=== PATIENT | male | born 1950 | race African-American/Black ===

== ENCOUNTER 2018-04-08 00:14 | Emergency (ER) | payer OTHER ==
[2018-04-08 01:21] LABS: BASO # 0.1 10^3/uL (0.0-0.2); EOS # 0.2 10^3/uL (0.0-0.50); EOS % 3.1 % (0.0-3.0); HEMATOCRIT 42.2 % (42.0-52.0); IMMATURE GRANULOCYTE % 0.3 % (0-3.0); LYMPH # 2.7 10^3/uL (1.5-4.5); MEAN CORPUSCULAR HEMOGLOBIN 29.5 pg (27.0-33.0); MEAN CORPUSCULAR HGB CONC 33.2 g/dl (32.0-36.5); MONO # 0.6 10^3/uL (0.0-0.8); MONO % 10.2 % (0.0-5.0); NEUTROPHILS # 2.4 10^3/uL (1.8-7.7); NEUTROPHILS % 40.4 % (36.0-66.0); PLATELET COUNT, AUTOMATED 268 10^3/uL (150-450); RED BLOOD COUNT 4.74 10^6/uL (4.30-6.10); WHITE BLOOD COUNT 5.9 10^3/uL (4.0-10.0)
[2018-04-08 01:36] LABS: ANION GAP 5 MEQ/L (8-16); BLOOD UREA NITROGEN 18 MG/DL (7-18); CALCIUM LEVEL 9.1 MG/DL (8.8-10.2); CARBON DIOXIDE LEVEL 28 MEQ/L (21-32); CHLORIDE LEVEL 108 MEQ/L (98-107); CK-MB VALUE MASS 4.2 NG/ML (<3.6); CPK CREATINE PHOSPHOKINASE 354 U/L (39-308); CREATININE FOR GFR 1.33 MG/DL (0.70-1.30); GLOMERULAR FILTRATION RATE 57.1 (>49); GLUCOSE, FASTING 84 MG/DL (70-100); MB/CK RELATIVE INDEX 1.18 (< OR =4); POTASSIUM SERUM 4.1 MEQ/L (3.5-5.1); SODIUM LEVEL 141 MEQ/L (136-145); TROPONIN I < 0.02 NG/ML (< 0.10)
[2018-04-08 04:37] LABS: CK-MB VALUE MASS 3.9 NG/ML (<3.6); CPK CREATINE PHOSPHOKINASE 324 U/L (39-308); TROPONIN I < 0.02 NG/ML (< 0.10)
== END 2018-04-08 05:13 | disposition home or self-care (01) ==
LOC: M ED 00:14
DX: R07.89 Other chest pain (principal); R00.1 Bradycardia, unspecified; I44.0 Atrioventricular block, first degree; I25.10 Atherosclerotic heart disease of native coronary artery without angina pectoris; I10 Essential (primary) hypertension; F20.9 Schizophrenia, unspecified; Z88.6 Allergy status to analgesic agent; Z88.5 Allergy status to narcotic agent; Z91.013 Allergy to seafood; Z91.010 Allergy to peanuts
CPT/HCPCS: 71045

== ENCOUNTER 2018-07-13 20:11 | Emergency (ER) | payer OTHER ==
[2018-07-13] MEDS: NITROGLYCERIN 0.4 MG SUBL TABLET SL ×2 (21:37→21:50)
[2018-07-13 21:52] LABS: BASO # 0.1 10^3/uL (0.0-0.2); BASO % 1.2 % (0.0-1.0); EOS # 0.2 10^3/uL (0.0-0.50); EOS % 2.7 % (0.0-3.0); HEMOGLOBIN 14.2 g/dl (13.5-17.5); IMMATURE GRANULOCYTE % 0.2 % (0-3.0); LYMPH # 2.1 10^3/uL (1.5-4.5); LYMPH % 35.8 % (24.0-44.0); MEAN CORPUSCULAR VOLUME 90.9 fl (80.0-96.0); MONO # 0.4 10^3/uL (0.0-0.8); MONO % 6.7 % (0.0-5.0); NEUTROPHILS # 3.1 10^3/uL (1.8-7.7); NEUTROPHILS % 53.4 % (36.0-66.0); PLATELET COUNT, AUTOMATED 254 10^3/uL (150-450); RED BLOOD COUNT 4.73 10^6/uL (4.30-6.10); RED CELL DISTRIBUTION WIDTH 13.6 % (11.5-14.5); WHITE BLOOD COUNT 5.9 10^3/uL (4.0-10.0)
[2018-07-13 22:15] LABS: ANION GAP 6 MEQ/L (8-16); BLOOD UREA NITROGEN 17 MG/DL (7-18); CALCIUM LEVEL 9.2 MG/DL (8.8-10.2); CARBON DIOXIDE LEVEL 28 MEQ/L (21-32); CHLORIDE LEVEL 108 MEQ/L (98-107); CPK CREATINE PHOSPHOKINASE 347 U/L (39-308); CREATININE FOR GFR 1.41 MG/DL (0.70-1.30); GLOMERULAR FILTRATION RATE > 60.0 (>49); GLUCOSE, FASTING 87 MG/DL (70-100); MB/CK RELATIVE INDEX 1.18 (< OR =4); POTASSIUM SERUM 3.7 MEQ/L (3.5-5.1); SODIUM LEVEL 142 MEQ/L (136-145); TROPONIN I < 0.02 NG/ML (< 0.10)
[2018-07-13] MEDS: KETOROLAC 30 MG/ML VIAL (J1885) IV (23:10)
[2018-07-13 23:31] LABS: KETONE, URINE AUTO RFX NEGATIVE (NEGATIVE); LEUKOCYTE ESTERASE UR AUTO RFX NEGATIVE (NEGATIVE); NITRITE, URINE AUTO RFX NEGATIVE (NEGATIVE); RBC, URINE AUTO RFX 1 /HPF (0-3); SPECIFIC GRAVITY UR AUTO RFX 1.018 (1.002-1.035); SQUAM EPITHELIAL CELL UR AURFX 0 /HPF (0-6); WBC, URINE AUTO RFX 1 /HPF (0-3)
[2018-07-14] MEDS: **hydrALAZINE** 10 MG TAB PO (00:23)
== END 2018-07-14 00:40 | disposition home or self-care (01) ==
LOC: M ED 07-14 00:40
DX: I10 Essential (primary) hypertension (principal); R07.9 Chest pain, unspecified; I25.2 Old myocardial infarction; F17.210 Nicotine dependence, cigarettes, uncomplicated; Z88.5 Allergy status to narcotic agent; Z88.8 Allergy status to other drugs, medicaments and biological substances; Z91.013 Allergy to seafood; Z91.010 Allergy to peanuts; Z79.899 Other long term (current) drug therapy; Z79.51 Long term (current) use of inhaled steroids
CPT/HCPCS: J1885

== ENCOUNTER 2019-05-09 20:02 | Emergency (ER) | payer OTHER ==
[~2019-05-09] VITALS: Ht 180.3 cm; Wt 111.4 kg
[~2019-05-09 20:02] MED LIST: ADVA115A INH; ALBU83IN INH; AMLO25TA PO; CLONI1TA PO; HYDR12.55 PO
[2019-05-09] MEDS ORDERED: ASPIRIN 325 MG TAB PO ONE (20:30)
[2019-05-09 20:50] LABS: BASO # 0.1 10^3/uL (0.0-0.2); BASO % 0.7 % (0.0-1.0); EOS % 0.3 % (0.0-3.0); HEMATOCRIT 43.2 % (42.0-52.0); HEMOGLOBIN 14.3 g/dl (13.5-17.5); LYMPH # 1.8 10^3/uL (1.5-4.5); MEAN CORPUSCULAR HEMOGLOBIN 29.5 pg (27.0-33.0); MEAN CORPUSCULAR HGB CONC 33.1 g/dl (32.0-36.5); MEAN CORPUSCULAR VOLUME 89.1 fl (80.0-96.0); MONO # 0.7 10^3/uL (0.0-0.8); MONO % 7.1 % (0.0-5.0); NEUTROPHILS # 7.3 10^3/uL (1.8-7.7); NEUTROPHILS % 73.6 % (36.0-66.0); PLATELET COUNT, AUTOMATED 278 10^3/uL (150-450); RED BLOOD COUNT 4.85 10^6/uL (4.30-6.10); WHITE BLOOD COUNT 9.9 10^3/uL (4.0-10.0)
[2019-05-09 21:01] LABS: BLOOD UREA NITROGEN 18 MG/DL (7-18); CALCIUM LEVEL 9.2 MG/DL (8.8-10.2); CARBON DIOXIDE LEVEL 25 MEQ/L (21-32); CHLORIDE LEVEL 110 MEQ/L (98-107); CK-MB VALUE MASS 15.2 NG/ML (<3.6); CREATININE FOR GFR 1.42 MG/DL (0.70-1.30); GLOMERULAR FILTRATION RATE > 60.0 (>49); GLUCOSE, FASTING 93 MG/DL (70-100); POTASSIUM SERUM 3.5 MEQ/L (3.5-5.1); SODIUM LEVEL 144 MEQ/L (136-145); TROPONIN I 0.05 NG/ML (< 0.10)
[2019-05-09 21:13] LABS: CPK CREATINE PHOSPHOKINASE 2448 U/L (39-308); INR 1.02; MB/CK RELATIVE INDEX 0.62 (< OR =4); PROTHROMBIN TIME 13.1 SECONDS (11.8-14.0)
[2019-05-09 21:14] LABS: PARTIAL THROMBOPLASTIN TIME 31.5 SECONDS (25.0-38.4)
--- NOTE | 2019-05-09 21:30 | REP ---
Clinical: chest pain . Comparison: 07/13/2018 . Findings: The mediastinum and cardiac silhouette are stable and within normal limits for portable technique. The lung guaman are clear without acute consolidation, effusion, or pneumothorax. Skeletal structures are intact. Impression: No acute cardiopulmonary process appreciated. Electronically Signed by Giuseppe Cook MD 05/09/2019 09:23 P
[2019-05-09] MEDS ORDERED: cloNIDine 0.2 MG TAB PO ONE (21:45)
[2019-05-09] MEDS ORDERED: METOPROLOL TART 25 MG TABLET PO ONE (22:30)
[2019-05-09 22:45] VITALS: BP 188/135
[2019-05-10] MEDS ORDERED: CLOPIDOGREL 300 MG TAB (PLAVIX) PO STA (01:27)
[2019-05-10 02:36] LABS: CK-MB VALUE MASS 15.9 NG/ML (<3.6); MB/CK RELATIVE INDEX 0.53 (< OR =4); TROPONIN I 0.05 NG/ML (< 0.10)
[2019-05-10 05:58] LABS: MB/CK RELATIVE INDEX 0.48 (< OR =4); TROPONIN I 0.04 NG/ML (< 0.10)
[2019-05-10 06:31] VITALS: BP 127/80
--- NOTE | 2019-05-10 07:29 | ECGEPIP ---
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
--- NOTE | 2019-05-11 03:31 | ECGEPIP ---
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
== END 2019-05-10 06:34 | disposition home or self-care (01) ==
LOC: M ED 20:02
DX: I10 Essential (primary) hypertension (principal); R07.89 Other chest pain; J45.909 Unspecified asthma, uncomplicated; F17.210 Nicotine dependence, cigarettes, uncomplicated; Z79.51 Long term (current) use of inhaled steroids; Z79.899 Other long term (current) drug therapy; Z88.6 Allergy status to analgesic agent; Z88.8 Allergy status to other drugs, medicaments and biological substances; Z91.010 Allergy to peanuts; Z91.013 Allergy to seafood